=== PATIENT | male | born 1985 | race Caucasian/White ===

== ENCOUNTER 2018-04-27 01:32 | Emergency (ER) | payer SELFPAY ==
[~2018-04-27] VITALS: Ht 175.3 cm; Wt 82.2 kg
[2018-04-27] MEDS ORDERED: LANTUS100 UNIT/M SC (01:43)
[2018-04-27] MEDS ORDERED: HUMALOG100 UNIT/M SC (01:43)
[2018-04-27] MEDS ORDERED: DOXYCYCL HYC100 MG PO (02:20)
[2018-04-27] MEDS ORDERED: TRAMADOL HCL50 MG PO (02:25)
[2018-04-27 02:40] VITALS: BP 132/80
== END 2018-04-27 02:40 | disposition home or self-care (01) | DRG 603 ==
LOC: ED 01:32
PROC: 0H94XZZ Drainage of Neck Skin, External Approach (ICD-10-PCS; principal; 2018-04-27)
DX: L02.11 Cutaneous abscess of neck (principal); E11.9 Type 2 diabetes mellitus without complications; F17.210 Nicotine dependence, cigarettes, uncomplicated

== ENCOUNTER 2018-04-29 16:43 | Emergency (ER) | payer SELFPAY ==
[~2018-04-29] VITALS: Ht 175.3 cm; Wt 85.0 kg
[~2018-04-29 16:43] MED LIST: DOXYCYCL HYC100 MG PO; HUMALOG100 UNIT/M SC; LANTUS100 UNIT/M SC; TRAMADOL HCL50 MG PO
[2018-04-29] MEDS ORDERED: BACTRIM DS1 TAB PO (17:05)
[2018-04-29] MEDS ORDERED: HYDROCO/APAP1 TA9 PO (17:05)
[2018-04-29] MEDS ORDERED: CEPHALEXIN500 M1 PO (17:05)
[2018-04-29 17:10] VITALS: BP 148/82
== END 2018-04-29 17:36 | disposition home or self-care (01) | DRG 951 ==
LOC: ED 16:43
DX: Z48.01 Encounter for change or removal of surgical wound dressing (principal)

== ENCOUNTER 2018-05-03 16:11 | Emergency (ER) | payer SELFPAY ==
[~2018-05-03] VITALS: Ht 175.3 cm; Wt 82.7 kg
[~2018-05-03 16:11] MED LIST changes: +BACTRIM DS1 TAB PO; +CEPHALEXIN500 M1 PO; +HYDROCO/APAP1 TA9 PO
[2018-05-03 16:36] VITALS: BP 133/87
== END 2018-05-03 16:51 | disposition home or self-care (01) | DRG 951 ==
LOC: ED 16:11
DX: Z48.01 Encounter for change or removal of surgical wound dressing (principal); E11.9 Type 2 diabetes mellitus without complications; F17.210 Nicotine dependence, cigarettes, uncomplicated